=== PATIENT | female | born 1965 | race Caucasian/White ===

== ENCOUNTER 2020-01-16 10:24 | Day surgery (SDC) | payer MEDICAID ==
[2020-01-15 12:11] LABS: COVID AG,FIA SOURCE NASOPHARYNGEAL
[~2020-01-16] VITALS: Ht 165.1 cm; Wt 75.5 kg
[~2020-01-16 10:24] MED LIST: SODIUM CHLORIDE 0.9% 1,000 ML ONE
[2020-01-16] MEDS ORDERED: SODIUM CHLORIDE 0.9% 1,000 ML IV ONE (10:30)
[2020-01-16] MEDS ORDERED: PROPOFOL 1% 20 ML VIAL IVP ONE (12:00)
== END 2020-01-16 13:20 | disposition home or self-care (01) ==
LOC: SURGERY 10:24
PROVIDERS: ATTEND Student in an Organized Health Care Education/Training Program
DX: I85.00 Esophageal varices without bleeding (principal); K22.10 Ulcer of esophagus without bleeding; K44.9 Diaphragmatic hernia without obstruction or gangrene; K31.89 Other diseases of stomach and duodenum; K29.50 Unspecified chronic gastritis without bleeding; M19.90 Unspecified osteoarthritis, unspecified site; K76.6 Portal hypertension; K70.30 Alcoholic cirrhosis of liver without ascites; D50.9 Iron deficiency anemia, unspecified; E66.9 Obesity, unspecified; Z79.899 Other long term (current) drug therapy; Z87.891 Personal history of nicotine dependence; Z20.828 Contact with and (suspected) exposure to other viral communicable diseases
CPT/HCPCS: 43239; 43244; 87426; 88305; 88312; 88313; C9803; J2704; J7030

== ENCOUNTER 2020-03-12 11:48 | Day surgery (SDC) | payer MEDICAID ==
[~2020-03-12] VITALS: Ht 165.1 cm; Wt 75.5 kg
[2020-03-12] MEDS ORDERED: LIDOCAINE/PF 2% 5 ML VIAL IM ONE (12:00)
[2020-03-12] MEDS ORDERED: PROPOFOL 1% 20 ML VIAL IVP ONE (12:00)
[2020-03-12] MEDS ORDERED: SODIUM CHLORIDE 0.9% 1,000 ML IV ONE (12:30)
[2020-03-12] MEDS ORDERED: FURO40 PO (12:36)
[2020-03-12] MEDS ORDERED: OMEP20 PO (12:36)
[2020-03-12] MEDS ORDERED: SPIR50 PO (12:37)
[2020-03-12] MEDS ORDERED: SUCR1TAB28 PO (12:37)
[2020-03-12] MEDS ORDERED: PANT20TA PO (12:37)
[2020-03-12 16:32] LABS: COVID AG,FIA SOURCE NASOPHARYNGEAL
== END 2020-03-12 15:40 | disposition home or self-care (01) ==
LOC: SURGERY 11:48
PROVIDERS: ATTEND Student in an Organized Health Care Education/Training Program
DX: K62.1 Rectal polyp (principal); K64.8 Other hemorrhoids; M19.90 Unspecified osteoarthritis, unspecified site; K57.30 Diverticulosis of large intestine without perforation or abscess without bleeding; K21.9 Gastro-esophageal reflux disease without esophagitis; Z20.828 Contact with and (suspected) exposure to other viral communicable diseases; K74.60 Unspecified cirrhosis of liver; K59.00 Constipation, unspecified; Z79.899 Other long term (current) drug therapy; Z98.890 Other specified postprocedural states
CPT/HCPCS: 45380; 87426; 88305; C9803; J2704; J3490

== ENCOUNTER 2020-04-16 11:49 | Day surgery (SDC) | payer MEDICAID ==
[2020-04-15 11:29] LABS: COVID AG,FIA SOURCE NASOPHARYNGEAL
[~2020-04-16] VITALS: Ht 165.1 cm; Wt 77.3 kg
[~2020-04-16 11:49] MED LIST changes: +FURO40 PO; +OMEP20 PO; +PANT20TA PO; +SODIUM CHLORIDE 0.9% 1,000 ML IV ONE; +SPIR50 PO; +SUCR1TAB28 PO
[2020-04-16] MEDS ORDERED: PROPOFOL 1% 20 ML VIAL IVP ONE (11:50)
[2020-04-16] MEDS ORDERED: LIDOCAINE/PF 2% 5 ML SYRINGE IVP ONE (11:50)
== END 2020-04-16 15:15 | disposition home or self-care (01) ==
LOC: SURGERY 11:49
PROVIDERS: ATTEND Student in an Organized Health Care Education/Training Program
DX: I85.00 Esophageal varices without bleeding (principal); K31.89 Other diseases of stomach and duodenum; K44.9 Diaphragmatic hernia without obstruction or gangrene; K70.30 Alcoholic cirrhosis of liver without ascites; K76.6 Portal hypertension; M19.90 Unspecified osteoarthritis, unspecified site; D50.9 Iron deficiency anemia, unspecified; E66.9 Obesity, unspecified; Z83.3 Family history of diabetes mellitus; Z80.8 Family history of malignant neoplasm of other organs or systems; Z98.890 Other specified postprocedural states; Z79.899 Other long term (current) drug therapy
CPT/HCPCS: 43235; 87426; C9803; J2704; J3490; J7030